=== PATIENT | male | born 1985 | race Caucasian/White ===

== ENCOUNTER 2017-06-09 20:33 | Emergency (ER) | payer OTHER ==
--- NOTE | 2017-06-09 20:56 | EDM.PDOC ---
ED HPI GENERAL MEDICAL PROBLEM - General Chief Complaint: Laceration Stated Complaint: laceration Time Seen by Provider: 06/09/17 20:35 Source of Information: Reports: Patient History Limitations: Reports: No Limitations - History of Present Illness Onset: Today Duration: Hour(s):, Constant Location: Reports: Head Quality: Reports: Ache, Dull Severity: Mild Improves with: Reports: Cold Therapy Worsens with: Reports: None Context: Reports: Trauma Associated Symptoms: Reports: No Other Symptoms - Related Data Allergies Allergy/AdvReac Type Severity Reaction Status Date / Time No Known Allergies Allergy Verified 06/09/17 20:35 Home Meds: Home Meds . [No Known Home Meds] 06/09/17 [History] ED ROS GENERAL - Review of Systems Review Of Systems: See Below Constitutional: Reports: No Symptoms HEENT: Reports: No Symptoms Respiratory: Reports: No Symptoms Cardiovascular: Reports: No Symptoms Endocrine: Reports: No Symptoms GI/Abdominal: Reports: No Symptoms : Reports: No Symptoms Musculoskeletal: Reports: No Symptoms Skin: Reports: No Symptoms Neurological: Reports: No Symptoms Psychiatric: Reports: No Symptoms Hematologic/Lymphatic: Reports: No Symptoms Immunologic: Reports: No Symptoms ED EXAM, SKIN/RASH Exam: See Below Exam Limited By: No Limitations General Appearance: Alert, WD/WN, No Apparent Distress Ears: Normal External Exam, Normal Canal, Hearing Grossly Normal, Normal TMs Nose: Normal Inspection, Normal Mucosa, No Blood Throat/Mouth: Normal Inspection, Normal Lips, Normal Teeth, Normal Gums, Normal Oropharynx, Normal Voice, No Airway Compromise Head: Normocephalic, Other (Laceration right frontal area) Neck: Normal Inspection, Supple, Non-Tender, Full Range of Motion Respiratory/Chest: No Respiratory Distress, Lungs Clear, Normal Breath Sounds, No Accessory Muscle Use, Chest Non-Tender Cardiovascular: Normal Peripheral Pulses, Regular Rate, Rhythm, No Edema, No Gallop, No JVD, No Murmur, No Rub GI/Abdominal: Normal Bowel Sounds, Soft, Non-Tender, No Organomegaly, No Distention, No Abnormal Bruit, No Mass (Male) Exam: Deferred Rectal (Males) Exam: Normal Rectal Tone, Deferred Back Exam: Normal Inspection, Full Range of Motion, NT Extremities: Normal Inspection, Normal Range of Motion, Non-Tender, No Pedal Edema, Normal Capillary Refill Neurological: Alert, Oriented, CN II-XII Intact, Normal Cognition, Normal Gait, Normal Reflexes, No Motor/Sensory Deficits Psychiatric: Normal Affect, Normal Mood Location, Skin: Head (4 cm laceration over right frontal area) Characteristics: Linear Lymphatic: No Adenopathy ED SKIN PROCEDURES - Laceration/Wound Repair Right Lateral Forehead Lac/Wound length In cm: 3 Appearance: Subcutaneous, Linear, Mildly Contaminated Distal NVT: Neuro & Vascular Intact Anesthetic Type: Local Local Anesthesia - Lidocaine (Xylocaine): 1% Plain Local Anesthetic Volume: 5cc Skin Prep: Chlorhexidine (Hibiciens) Exploration/Debridement/Repair: Explored to Base, Other (Wound was irrigated with normal saline) Closed with: Sutures Suture Size: other (50) # of Sutures: 7 Suture Type: Nylon Course - Orders/Labs/Meds Orders: Active Orders 24 hr Category Date Time Status Vaccines to be Administered [RC] PER UNIT ROUTINE Care 06/09/17 20:39 Ordered Bacitracin/Neomycin/Polymyxin [Triple Antibiotic Oint] Med 06/09/17 20:41 Once 2 each TOP ONETIME ONE Diphth,Pertuss(Acell),Tet Vac [Adacel] Med 06/09/17 20:38 Once 0.5 ml IM .ONCE ONE Lidocaine 1% [Xylocaine-MPF 1%] Med 06/09/17 20:39 Once 10 ml INJECT ONETIME ONE Departure - Departure Time of Disposition: 21:15 Disposition: Home, Self-Care 01 Clinical Impression: Broken skin - Discharge Information Referrals: PCP,Unknown [Primary Care Provider] - Care Plan Goals: Keep wound clean apply Neosporin once a day and cover with a Band-Aid follow-up in 7 days in clinic for suture removal return if any redness or signs of infection like pus fever etc. - My Orders Last 24 Hours: My Active Orders 06/09/17 20:38 Diphth,Pertuss(Acell),Tet Vac [Adacel] 0.5 ml IM .ONCE ONE 06/09/17 20:39 Vaccines to be Administered [RC] PER UNIT ROUTINE Lidocaine 1% [Xylocaine-MPF 1%] 10 ml INJECT ONETIME ONE 06/09/17 20:41 Bacitracin/Neomycin/Polymyxin [Triple Antibiotic Oint] 2 each TOP ONETIME ONE - Assessment/Plan Last 24 Hours: My Active Orders 06/09/17 20:38 Diphth,Pertuss(Acell),Tet Vac [Adacel] 0.5 ml IM .ONCE ONE 06/09/17 20:39 Vaccines to be Administered [RC] PER UNIT ROUTINE Lidocaine 1% [Xylocaine-MPF 1%] 10 ml INJECT ONETIME ONE 06/09/17 20:41 Bacitracin/Neomycin/Polymyxin [Triple Antibiotic Oint] 2 each TOP ONETIME ONE
[2017-06-09] MEDS: Diphtheria,Pertussis(Acell),Tetanus Vaccine 0.5 ML SDV IM ONE (21:09)
[2017-06-09] MEDS: Bacitracin/Neomycin/Polymyxin B Oint 0.9 GM U/D Packet TOP ONE (21:09)
== END 2017-06-09 21:20 | disposition home or self-care (01) ==
LOC: LL.ED 20:33
DX: S01.81XA Laceration without foreign body of other part of head, initial encounter (principal); Z23 Encounter for immunization; X58.XXXA Exposure to other specified factors, initial encounter
CPT/HCPCS: 12013; 90471; 90715; 99219; 99224; 99231; 99238; 99282; 99283

== ENCOUNTER 2018-09-14 03:25 | Emergency (ER) | payer OTHER ==
[2018-09-14] MEDS ORDERED: Bacitracin/Neomycin/Polymyxin B Oint 0.9 GM U/D Packet TOP ONE (03:44)
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
== END 2018-09-14 04:40 | disposition home or self-care (01) ==
LOC: LL.ED 03:25
DX: S81.812A Laceration without foreign body, left lower leg, initial encounter (principal); F10.129 Alcohol abuse with intoxication, unspecified; R03.0 Elevated blood-pressure reading, without diagnosis of hypertension; Z71.6 Tobacco abuse counseling; F17.200 Nicotine dependence, unspecified, uncomplicated; W19.XXXA Unspecified fall, initial encounter; Y92.009 Unspecified place in unspecified non-institutional (private) residence as the place of occurrence of the external cause
CPT/HCPCS: 12002; 99282; J2001; 12011